=== PATIENT | female | born 1965 | race Caucasian/White ===

== ENCOUNTER 2021-03-04 16:57 | Emergency (ER) | payer SELFPAY ==
[~2021-03-04] VITALS: Ht 160 cm; Wt 56.4 kg
[2021-03-04] MEDS ORDERED: BENA25CA4 PO (17:03)
[2021-03-04] MEDS ORDERED: CIPROFLOXACIN 250MG TAB PO ONE (18:40)
[2021-03-04] MEDS ORDERED: CIPR250T26 PO (18:44)
[2021-03-04 18:55] VITALS: BP 141/85
== END 2021-03-04 19:02 | disposition home or self-care (01) ==
LOC: M ED 16:57
DX: N39.0 Urinary tract infection, site not specified (principal)

== ENCOUNTER 2022-02-21 19:05 | Emergency (ER) | payer SELFPAY ==
[~2022-02-21] VITALS: Ht 160 cm; Wt 57.7 kg
[2022-02-21 19:05] VITALS: BP 168/80
[~2022-02-21 19:05] MED LIST: BENA25CA4 PO; CIPR250T26 PO
== END 2022-02-21 23:41 | disposition left against medical advice (07) ==
LOC: M ED 19:05
DX: Z53.29 Procedure and treatment not carried out because of patient's decision for other reasons (principal)